=== PATIENT | female | born 1955 | race Caucasian/White ===

== ENCOUNTER 2018-11-02 11:20 | Emergency (ER) | payer MEDICARE ==
[~2018-11-02] VITALS: Ht 157.5 cm; Wt 68.2 kg
[2018-11-02 11:57] VITALS: BP 148/55; Ht 157.5 cm; Wt 68.2 kg
[2018-11-02] MEDS ORDERED: LIPITOR40 MG PO (11:59)
[2018-11-02] MEDS ORDERED: ULTRAM50 MG PO (13:17)
== END 2018-11-02 13:32 | disposition home or self-care (01) ==
LOC: D.ER 11:20
DX: S63.005A Unspecified dislocation of left wrist and hand, initial encounter (principal); W18.30XA Fall on same level, unspecified, initial encounter; Y93.89 Activity, other specified; Y92.89 Other specified places as the place of occurrence of the external cause